=== PATIENT | male | born 1965 | race Caucasian/White ===

== ENCOUNTER 2016-09-23 07:28 | Day surgery (SDC) | payer BC ==
[2016-09-21 09:41] VITALS: BMI 43.0
[~2016-09-23 07:28] MED LIST: LACTATED RINGERS 1,000 ML IV SCH; LIDOCAINE 1% 20 ML VIAL (10MG/ML) FOR IV START INTRADERMA PRN
[2016-09-23 07:41] VITALS: TEMP 97.6
[2016-09-23] MEDS ORDERED: PROPOFOL 10 MG/ML 20 ML VIAL IV ONE (08:05)
[2016-09-23] MEDS ORDERED: MIDAZOLAM 2 MG/2 ML VIAL ONE (08:05)
--- NOTE | 2016-09-23 08:07 | P.GSHP ---
History of Present Illness H&P Date: 09/23/16 Chief Complaint: Colon cancer screening Patient here today for colonoscopy. He has not had one previously. He has a family history of colon cancer in an uncle. No bowel related complaints. Past Medical History Past Medical History: Hyperlipidemia, Hypertension History of Any Multi-Drug Resistant Organisms: None Reported Additional Past Surgical History / Comment(s): LUNG BIOPSY Past Anesthesia/Blood Transfusion Reactions: No Reported Reaction Smoking Status: Never smoker Past Alcohol Use History: Occasional Past Drug Use History: None Reported - Past Family History Father Brother(s) Family Medical History: Cancer Medications and Allergies Home Medications Medication Instructions Recorded Confirmed Type Lisinopril-Hctz 20-25 mg 1 tab PO DAILY 09/21/16 09/23/16 History [Zestoretic 20-25] Atorvastatin [Lipitor] 10 mg PO DAILY 09/23/16 09/23/16 History Allergies Allergy/AdvReac Type Severity Reaction Status Date / Time No Known Allergies Allergy Verified 09/21/16 09:24 Surgical - Exam Vital Signs Temp Pulse Resp BP Pulse Ox 97.6 F 82 14 140/82 96 09/23/16 07:40 09/23/16 07:40 09/23/16 07:40 09/23/16 07:40 09/23/16 07:40 Physical exam: General: Well-developed, well-nourished HEENT: Normocephalic, sclerae nonicteric Abdomen: Nontender, nondistended Extremities: No edema Neuro: Alert and oriented Assessment and Plan (1) Colon cancer screening Narrative/Plan: Will proceed with colonoscopy at this time. Status: Acute
--- NOTE | 2016-09-23 08:27 | P.PCN ---
Date of Procedure: 09/23/16 Preoperative Diagnosis: Postoperative Diagnosis: Procedure(s) Performed: PREOPERATIVE DIAGNOSIS: Screening POSTOPERATIVE DIAGNOSIS: Normal exam PROCEDURE: Colonoscopy ANESTHESIA: MAC SURGEON: Iain Wahl M.D. SPECIMENS: None ENDOSCOPIC PROCEDURE: The patient was placed on the endoscopy table in the left decubitus position. The Olympus colonoscope was inserted into the anus and passed under direct visualization to the base of the cecum. The appendiceal orifice was visualized. From that point the scope was slowly withdrawn inspecting all surfaces carefully. There were no neoplastic inflammatory or polypoid lesions throughout the cecum, ascending, transverse, descending, sigmoid and rectum. There was no diverticulosis noted. Digital rectal examination was normal. The patient was taken to the recovery room in stable condition per anesthesia guidelines. RECOMMENDATIONS: Increase fiber. Follow-up colonoscopy 10 years Implants: Indications for Procedure: Operative Findings: Description of Procedure:
[2016-09-23 08:54] VITALS: BP 114/73; PULSE 70; RESP 18
== END 2016-09-23 09:05 | disposition home or self-care (01) ==
LOC: ORWHC2ENDO 07:28
PROVIDERS: ATTEND Surgery
DX: Z12.11 Encounter for screening for malignant neoplasm of colon (principal); I10 Essential (primary) hypertension; E78.5 Hyperlipidemia, unspecified; G47.33 Obstructive sleep apnea (adult) (pediatric); E66.01 Morbid (severe) obesity due to excess calories; Z68.41 Body mass index [BMI] 40.0-44.9, adult; Z80.0 Family history of malignant neoplasm of digestive organs; Z99.89 Dependence on other enabling machines and devices; Z79.899 Other long term (current) drug therapy
CPT/HCPCS: J2250; J2704; G0105; 45378

== ENCOUNTER → 2021-06-27 | Outpatient (CLI) | payer OTHER ==
--- NOTE | 2021-06-27 09:41 | XR ---
EXAMINATION TYPE: XR knee complete RT DATE OF EXAM: 06/27/2021 CLINICAL HISTORY: pain TECHNIQUE: Three views of the right knee are obtained. COMPARISON: None. FINDINGS: There is no acute fracture/dislocation. The tri-compartment joint spaces appear within no rmal limits. Small suprapatellar joint effusion noted. The overlying soft tissue appears unremarkabl e. IMPRESSION: There is no acute fracture or dislocation.ICD 10 NO FRACTURE, INITIAL EVALUATION
== END | disposition home or self-care (01) ==
LOC: RADXRMAIN 09:17
PROVIDERS: ATTEND Family Medicine
DX: S86.911A Strain of unspecified muscle(s) and tendon(s) at lower leg level, right leg, initial encounter (principal); X58.XXXA Exposure to other specified factors, initial encounter

== ENCOUNTER → 2024-03-13 | Outpatient (CLI) | payer BC ==
[2024-03-13 16:12] LABS: Basophils # (A) 0.02 X 10*3/uL (0.00-0.10); Basophils % (A) 0.3 %; Eosinophils % (A) 1.4 %; HCT 43.9 % (39.6-50.0); HGB 14.3 g/dL (13.0-17.0); Lymphocytes # (A) 1.68 X 10*3/uL (0.90-5.00); Lymphocytes % (A) 23.4 %; MCH 27.8 pg (27.0-32.0); MCHC 32.6 g/dL (32.0-37.0); MCV 85.4 FL (80.0-97.0); Mean Platelet Volume 9.9 FL (9.5-12.2); Monocytes # (A) 0.64 X 10*3/uL (0.20-1.00); Monocytes % (A) 8.9 %; NRBC Per 100 WBC 0 X 10*3/uL (0.00-0.01); Neutrophils # (A) 4.73 X 10*3/uL (1.80-7.70); Neutrophils % (A) 65.7 %; Platelet Count 238 X 10*3/uL (140-440); RBC 5.14 X 10*6/uL (4.40-5.60); RDW 13.2 % (11.5-14.5); WBC 7.19 X 10*3/uL (4.50-10.00)
[2024-03-13 16:29] LABS: ALT 28 U/L (10-49); AST 24 U/L (14-35); Albumin 4.3 g/dL (3.8-4.9); Albumin/Globulin Ratio 1.59 Ratio (1.60-3.17); Alkaline Phosphatase 75 U/L (41-126); Blood Urea Nitrogen 17.6 mg/dL (9.0-27.0); Calcium 9.2 mg/dL (8.7-10.3); Carbon Dioxide 28.1 mmol/L (21.6-31.8); Chloride 102 mmol/L (96-109); Globulin 2.7 g/dL (1.6-3.3); Glucose 114 mg/dL (70-110); LDL Cholesterol,Calculated 81.7 mg/dL (0.0-131.0); Potassium 4.1 mmol/L (3.5-5.5); Prostate Specific Antigen 0.41 ng/mL (0.000-3.500); Sodium 139 mmol/L (135-145); Total Bilirubin 0.6 mg/dL (0.3-1.2)
== END | disposition home or self-care (01) ==
LOC: LABWHC1 10:59
PROVIDERS: ATTEND Family Medicine
DX: Z12.5 Encounter for screening for malignant neoplasm of prostate (principal); I10 Essential (primary) hypertension
CPT/HCPCS: 36415; 80053; 80061; 84153; 85025